=== PATIENT | female | born 1955 | race Caucasian/White ===

== ENCOUNTER 2023-03-18 11:26 | Emergency (ER) | payer BC, MEDICARE | END 2023-03-18 13:07 | disposition home or self-care (01) | LOC: KA.ED 11:26 | DX: S09.90XA Unspecified injury of head, initial encounter (principal); S16.1XXA Strain of muscle, fascia and tendon at neck level, initial encounter; Z88.5 Allergy status to narcotic agent; Z88.8 Allergy status to other drugs, medicaments and biological substances; W01.198A Fall on same level from slipping, tripping and stumbling with subsequent striking against other object, initial encounter | CPT/HCPCS: 70450; 72125; 99283 ==

== ENCOUNTER 2024-09-01 12:07 | Emergency (ER) | payer MEDICARE ==
[2024-09-01] MEDS: Ondansetron 4 MG/2 ML SDV IVPUSH ONE ×2 (12:28→15:05)
[2024-09-01] MEDS: Ketorolac 30 MG/ML SDV IVPUSH ONE (12:30)
[2024-09-01] MEDS: HYDROmorphone 1 MG/ML Syringe IVPUSH ONE (12:32)
[2024-09-01] MEDS: Sodium Chloride 0.9% 1,000 ML IV ONE (14:05)
[2024-09-01 14:16] LABS: BASOPHILS ABSOLUTE AUTO 0.02 10^3/uL (0.00-0.10); BASOPHILS PERCENT AUTO 0.2 % (0.0-1.0); EOSINOPHILS ABSOLUTE AUTO 0.12 10^3/uL (0.10-0.30); EOSINOPHILS PERCENT AUTO 1.4 % (1.0-3.0); HEMATOCRIT 42.6 % (37.0-47.0); HEMOGLOBIN 13.9 g/dL (12.0-16.0); IMMATURE GRAN ABSOLUTE AUTO 0.02 10^3/uL (0.00-0.04); IMMATURE GRAN PERCENT AUTO 0.2 % (0.0-0.4); LYMPHOCYTES ABSOLUTE AUTO 2.19 10^3/uL (1.00-4.00); LYMPHOCYTES PERCENT AUTO 24.8 % (20.0-40.0); MEAN CORPUSCULAR HEMOGLOBIN 28.5 pg (27.0-31.0); MEAN CORPUSCULAR HGB CONC 32.6 g/dL (32.0-36.0); MEAN CORPUSCULAR VOLUME 87.3 fL (82.0-92.0); MEAN PLATELET VOLUME 11.7 fL (7.4-10.4); MONOCYTES ABSOLUTE AUTO 1.08 10^3/uL (0.10-0.80); MONOCYTES PERCENT AUTO 12.2 % (2.0-8.0); NEUTROPHILS ABSOLUTE AUTO 5.41 10^3/uL (2.50-7.00); NEUTROPHILS PERCENT AUTO 61.2 % (50.0-70.0); PLATELET COUNT,PLT 195 10^3/uL (150-400); RED BLOOD CELL COUNT 4.88 10^6/uL (3.80-5.50); WHITE BLOOD CELL COUNT,WBC 8.84 10^3/uL (5.00-10.00)
[2024-09-01 14:35] LABS: ALBUMIN 3.69 g/dL (3.40-5.00); ANION GAP 10.3 mmol/L (5-15); BILIRUBIN TOTAL 0.3 mg/dL (0.2-1.0); CALCIUM 9.3 mg/dL (8.7-10.3); CARBON DIOXIDE,CO2 26.7 mmol/L (21.0-32.0); CREATININE 0.95 mg/dL (0.51-1.17); EST CRCL DRUG DOSING (CG) 60.44 mL/min; PROTEIN TOTAL,TP 7.1 g/dL (6.4-8.2)
[2024-09-01 15:23] LABS: TSH ULTRASENSITIVE 11.618 uIU/mL (0.340-4.820)
[2024-09-01] MEDS: Ondansetron 4 MG/2 ML SDV ONE (15:29)
[2024-09-01 16:40] VITALS: PULSE 50
[2024-09-01 17:10] VITALS: BP 144/54
== END 2024-09-01 17:20 ==
LOC: KA.ED 12:07
DX: M54.50 Low back pain, unspecified (principal); R00.1 Bradycardia, unspecified; R00.8 Other abnormalities of heart beat; Z88.5 Allergy status to narcotic agent; Z88.8 Allergy status to other drugs, medicaments and biological substances; Z79.890 Hormone replacement therapy; Z79.899 Other long term (current) drug therapy
CPT/HCPCS: 36415; 72100; 80053; 82947; 84443; 84484; 85025; 96361; 96374; 96375; 96376; 99285-25; J1171; J1885; J2405; J7030

== ENCOUNTER 2024-10-22 18:23 | Emergency (ER) | payer MEDICARE ==
[2024-10-22 19:02] LABS: BASOPHILS ABSOLUTE AUTO 0.02 10^3/uL (0.00-0.10); BASOPHILS PERCENT AUTO 0.3 % (0.0-1.0); EOSINOPHILS ABSOLUTE AUTO 0.13 10^3/uL (0.10-0.30); EOSINOPHILS PERCENT AUTO 1.9 % (1.0-3.0); HEMATOCRIT 41.8 % (37.0-47.0); HEMOGLOBIN 13.7 g/dL (12.0-16.0); IMMATURE GRAN ABSOLUTE AUTO 0.01 10^3/uL (0.00-0.04); IMMATURE GRAN PERCENT AUTO 0.1 % (0.0-0.4); LYMPHOCYTES PERCENT AUTO 24.5 % (20.0-40.0); MEAN CORPUSCULAR HGB CONC 32.8 g/dL (32.0-36.0); MEAN CORPUSCULAR VOLUME 88.4 fL (82.0-92.0); MEAN PLATELET VOLUME 12.4 fL (7.4-10.4); MONOCYTES ABSOLUTE AUTO 0.92 10^3/uL (0.10-0.80); MONOCYTES PERCENT AUTO 13.2 % (2.0-8.0); NEUTROPHILS ABSOLUTE AUTO 4.17 10^3/uL (2.50-7.00); PLATELET COUNT,PLT 192 10^3/uL (150-400); RED BLOOD CELL COUNT 4.73 10^6/uL (3.80-5.50); WHITE BLOOD CELL COUNT,WBC 6.95 10^3/uL (5.00-10.00)
[2024-10-22] MEDS: Aspirin 81 MG Tab.Chew PO ONE (19:11)
[2024-10-22 19:20] LABS: ALBUMIN 3.78 g/dL (3.40-5.00); ANION GAP 12.8 mmol/L (5-15); BILIRUBIN TOTAL 0.3 mg/dL (0.2-1.0); CALCIUM 9.6 mg/dL (8.7-10.3); CARBON DIOXIDE,CO2 24.5 mmol/L (21.0-32.0); CREATININE 0.98 mg/dL (0.51-1.17); EST CRCL DRUG DOSING (CG) 58.59 mL/min; POTASSIUM,K 4.3 mmol/L (3.5-5.1); PROTEIN TOTAL,TP 7.3 g/dL (6.4-8.2)
[2024-10-22 19:27] LABS: INR 1.2 (0.9-1.1)
[2024-10-22] MEDS: Ketorolac 30 MG/ML SDV IM ONE (19:32)
[2024-10-22] MEDS: Ketorolac 30 MG/ML SDV IVPUSH ONE (19:33)
== END 2024-10-22 19:45 | disposition home or self-care (01) ==
LOC: KA.ED 18:23
DX: I49.3 Ventricular premature depolarization (principal); R07.9 Chest pain, unspecified; Z88.8 Allergy status to other drugs, medicaments and biological substances; Z88.6 Allergy status to analgesic agent; Z91.09 Other allergy status, other than to drugs and biological substances; Z79.82 Long term (current) use of aspirin; Z79.890 Hormone replacement therapy; Z79.899 Other long term (current) drug therapy
CPT/HCPCS: 71045; 80053; 84484; 85025; 85610; 93005; 93010; 96372; 99284; 99285-25; A9270-GY; J1885